=== PATIENT | female | born 1965 | race Caucasian/White ===

== ENCOUNTER → 2023-03-19 10:29 | Outpatient (REF) | payer OTHER, SELFPAY | LOC: RCS 10:29 | PROVIDERS: ATTENDING PHYSICIAN Internal Medicine Cardiovascular Disease; FAMILY PHYSICIAN Family Medicine | DX: R00.1 Bradycardia, unspecified (principal) | CPT/HCPCS: 93225; 93226 ==

== ENCOUNTER → 2023-04-08 12:00 | Outpatient (REF) | payer OTHER, SELFPAY | LOC: DHSLP 12:00 | PROVIDERS: ATTENDING PHYSICIAN Internal Medicine; FAMILY PHYSICIAN Family Medicine | DX: G47.33 Obstructive sleep apnea (adult) (pediatric) (principal); G47.61 Periodic limb movement disorder; G47.00 Insomnia, unspecified; R09.02 Hypoxemia | CPT/HCPCS: 95811 ==

== ENCOUNTER → 2023-04-08 18:38 | Outpatient (REF) | payer OTHER, SELFPAY | LOC: PAVMRI 18:38 | PROVIDERS: ATTENDING PHYSICIAN Internal Medicine Nephrology; FAMILY PHYSICIAN Family Medicine | DX: Q61.2 Polycystic kidney, adult type (principal); I10 Essential (primary) hypertension | CPT/HCPCS: 70544 ==

== ENCOUNTER 2023-04-09 09:23 | Day surgery (SDC) | payer OTHER, SELFPAY ==
[2023-04-01 13:18] VITALS: BMI 25.7
[2023-04-09 10:44] VITALS: BMI 25.1
--- NOTE | 2023-04-09 13:52 | ITS.CL.IMPLP ---
Piano Refinisher - Implant Loop
Implant Loop
Procedure Report:
Date of Procedure: April 09, 2023.
Procedure: Insertable Loop Recorder Implant.
Indication: Presyncope and palpitations. A Holter monitor showed nocturnal heart block of uncertain significance.
Performing physician: Kenny Jules MD, [facility].
Implant: YEOXIN VMall; Assert-IQ EL+, Model# [id number]; Serial# [id number].
Technique: The patient was prepped and draped in the usual fashion. A time-out was performed. No intravenous sedation was administered. Local anesthetic was applied to the left pre-pectoral subcutaneous tissue. Using the insertion kit an incision
was made left of the midline in the fourth intercostal space and the device was implanted subcutaneously and directed towards the nipple. Hemostasis was excellent. The skin was closed with steri-strips. The estimated blood loss was less than 0.5 ml.
There were no complications. No fluoroscopy. R waves measured 0.58 mV and P waves were visible.
Final Programming: Detections: Afib for 10 min, tachy at 165 bpm, mira at 30 bpm, pause at 3 sec.
Conclusion: Uncomplicated insertable loop implant.
Recommendation: Routine post-insertable loop care. The device is MRI conditional without a waiting period and up to 3 Vanessa.
cc: Bernadette Kumar MD and Miriam De La Cruz MD.
== END 2023-04-09 13:40 | disposition home or self-care (01) ==
LOC: CATH 09:23
PROVIDERS: ATTENDING PHYSICIAN Internal Medicine Cardiovascular Disease; FAMILY PHYSICIAN Family Medicine; OTHER PHYSICIAN Internal Medicine Cardiovascular Disease
DX: Z09 Encounter for follow-up examination after completed treatment for conditions other than malignant neoplasm (principal); I44.2 Atrioventricular block, complete; R00.2 Palpitations; R55 Syncope and collapse; I10 Essential (primary) hypertension; E78.00 Pure hypercholesterolemia, unspecified; I34.0 Nonrheumatic mitral (valve) insufficiency; K21.9 Gastro-esophageal reflux disease without esophagitis
CPT/HCPCS: 33285; 93005; C1764

== ENCOUNTER 2023-04-16 06:15 | Day surgery (SDC) | payer OTHER, SELFPAY ==
[2023-04-16] VITALS (11 sets, daily range): BP systolic 104–123; BP diastolic 72–84; BMI 25.1
--- NOTE | 2023-04-16 07:19 | PTCARENOTE ---
Dr Gerard at bedside, stated that pt may leave her contacts in for her EP procedure.
--- NOTE | 2023-04-16 10:41 | ITS.CL.PACE ---
Vacuum Applicator Operator - Pacemaker Implant
Pacemaker Implant
Procedure Report:
Date of Procedure: April 16, 2023.
Procedure: Pacemaker Implantation. Loop Explant.
Indication: The pacemaker is for the treatment of nonreversible symptomatic bradycardia due to paroxysmal third degree atrioventricular block.
Performing physician: Kenny Jules MD, [facility].
Implants:
Pulse Generator: Medtronic; Model# [id number]; Serial# [id number].
RA Lead: Medtronic; Model# 5076-52cm; Serial# [id number].
RV Lead: Medtronic; Model# 3830-69cm; Serial# [id number].
Explant: �[email or web address]; Assert-IQ EL+, Model# [id number]; Serial# [id number].
Technique: A time out was performed. The procedure site was identified. The patient was anesthetized by the anesthesia service. Preoperative cefazolin was administered. The patient was prepped and draped in the usual fashion. Local anesthetic was
applied to the left prepectoral subcutaneous tissue. A 3 inch incision was made along the left deltopectoral groove. Dissection was carried to the fascia. The left cephalic vein was easily isolated and proximal and distal control with 2-0 Vicryl
suture. Using a micropuncture needle to access the cephalic vein under direct visualization a glidewire was advanced into the central circulation. A 7 Fr introducer was placed to allow an 0.35 J wire to be advanced alongside the glidewire. The leads
were introduced with hemostatic peel away introducer sheaths using a retained guidewire technique. The RV lead was placed using utilizing the Medtronic His delivery catheter ([id number]) that was advanced to the left bundle area as confirmed by
fluoroscopy in the HEBREW and DAUGHERTY projections. The lead tip was advanced. PVC morphology was reviewed. When a satisfactory location was identified the lead was screwed into position with serial turns. After each series of turns unipolar sensed
morphology and impedance was, and paced morphology of V1 was analyzed. The lead was further advanced until satisfactory morphology and electrical characteristics were confirmed. The third attempt proved to be a bit more inferior then the initial
two positions. The long guiding sheath was cut and removed from the RV without change in lead position, impedance, sensing, or capture. The lead was secured to the pectoralis fascia with 0-silk suture. The atrial lead was then placed in the right
atrial appendage. 8 volt pacing did not capture the diaphragm from either lead. The atrial lead was secured to the pectoralis muscle and fascia with two 0-silk sutures. A subcutaneous pocket was created with Bovie cautery. Hemostasis was
excellent.The leads were appropriately attached to the device. The pocket was irrigated with antibiotic solution. The device and leads were placed in the pocket. The incision was closed in three layers with absorbable suture. Local anesthetic was
applied to the left prepectoral subcutaneous tissue over the loop site. An incision was made over the scar. Dissection was carried to the capsule. The capsule was entered. The old device was explanted. The pocket appeared normal. Hemostasis was
excellent. The pocket was irrigated saline. The incision was closed with steri-strips. Steri-strips and an Aquacel dressing were placed over the pacemaker incision. Estimated blood loss was 10 ml. There were no complications. Fluoroscopy time: 7.3
minutes and DAP 14.5 GyCM2. No IV contrast was administered. The device was then interrogated after skin closure.
Lead Analysis:
RA lead: P: 1.5 mV; Threshold: 0.5 V @ 0.4 ms; Impedance: 415 ohms.
RV lead: R: 11.1 mV; Threshold: 0.5 V @ 0.4 ms; Impedance: 893 ohms.
Paced QRS characteristics: V1 has QR morphology and measures less than 120 ms in duration, stim to peak V5 is 70 ms, and peak V1 to peak V6 is 46 ms. There is an isoelectric
Final Programming: MVP (AAIR to DDDR) 50-130 bpm. Max AV delay 350 ms.
Conclusion: Uncomplicated dual chamber Medtronic conduction system (LBB area) pacemaker implant with successful LBB capture. The pacing system is MRI conditional. Loop explant.
Recommendation: Routine post pacemaker care.
cc: Bernadette Kuamr MD and Miriam De La Cruz MD.
--- NOTE | 2023-04-16 12:15 | PTCARENOTE ---
Pt had CXR in department, tolerated well.
--- NOTE | 2023-04-16 13:13 | W.PN.UPDATE ---
Update Note
Progress Note Update
57 yo WF s/p DC PPM and Linq explant (same day) She feels good, no cp, sob, site stable with pressure dressing intact, linq site c/d/i with tegaderm. CXR no PTX, leads in good position, EKG SR 1deg AVB. She will get another dose of Ancef prior to
d/c and Keflex x 3 doses. Activity restrictions reviewed. She has inc check in 1 week. She is for d/c home after 2pm.
[2023-04-16] MEDS: ANCEF 5 IV (13:52)
--- NOTE | 2023-04-16 14:21 | PTCARENOTE ---
Pt d/c to home with . Pt given d/c instructions with good verbal feedback.
== END 2023-04-16 14:20 | disposition home or self-care (01) ==
LOC: CATH 06:15
PROVIDERS: ATTENDING PHYSICIAN Internal Medicine Cardiovascular Disease; FAMILY PHYSICIAN Family Medicine; OTHER PHYSICIAN Internal Medicine Cardiovascular Disease
DX: I44.2 Atrioventricular block, complete (principal); Z09 Encounter for follow-up examination after completed treatment for conditions other than malignant neoplasm; I10 Essential (primary) hypertension; E78.00 Pure hypercholesterolemia, unspecified; K21.9 Gastro-esophageal reflux disease without esophagitis; M06.9 Rheumatoid arthritis, unspecified; I71.40 Abdominal aortic aneurysm, without rupture, unspecified
CPT/HCPCS: 33208; 33286; 71045; 93005; C1769; C1785; C1887; C1892; C1898

== ENCOUNTER → 2023-06-28 13:37 | Outpatient (REF) | payer OTHER, SELFPAY | LOC: MRI 13:37 | PROVIDERS: ATTENDING PHYSICIAN Psychiatry & Neurology Neurology; FAMILY PHYSICIAN Family Medicine | DX: M47.816 Spondylosis without myelopathy or radiculopathy, lumbar region (principal); M70.61 Trochanteric bursitis, right hip; M47.817 Spondylosis without myelopathy or radiculopathy, lumbosacral region | CPT/HCPCS: 72148 ==

== ENCOUNTER → 2023-07-08 06:27 | Day surgery (SDC) | payer OTHER, SELFPAY | LOC: GI 06:27 | PROVIDERS: ATTENDING PHYSICIAN Internal Medicine Gastroenterology; FAMILY PHYSICIAN Family Medicine | DX: R19.4 Change in bowel habit (principal); K64.8 Other hemorrhoids; K63.5 Polyp of colon | CPT/HCPCS: 45380; 88305 ==

== ENCOUNTER → 2023-12-31 13:17 | Outpatient (REF) | payer OTHER, SELFPAY | LOC: RAD 13:17 | PROVIDERS: ATTENDING PHYSICIAN Nurse Practitioner Family; FAMILY PHYSICIAN Family Medicine | DX: J98.6 Disorders of diaphragm (principal) | CPT/HCPCS: 71046; 76000 ==

== ENCOUNTER → 2024-01-07 16:16 | Outpatient (REF) | payer OTHER, SELFPAY | LOC: RAD 16:16 | PROVIDERS: ATTENDING PHYSICIAN Internal Medicine Cardiovascular Disease; FAMILY PHYSICIAN Family Medicine | DX: I71.21 Aneurysm of the ascending aorta, without rupture (principal); I10 Essential (primary) hypertension | CPT/HCPCS: 71250 ==

== ENCOUNTER 2024-02-14 06:21 | Day surgery (SDC) | payer OTHER, SELFPAY | END 2024-02-14 10:32 | disposition home or self-care (01) | LOC: GI 06:21 | PROVIDERS: ATTENDING PHYSICIAN Internal Medicine Gastroenterology | DX: R12 Heartburn (principal); K31.89 Other diseases of stomach and duodenum; K22.89 Other specified disease of esophagus; R19.7 Diarrhea, unspecified; K29.50 Unspecified chronic gastritis without bleeding; K20.90 Esophagitis, unspecified without bleeding | CPT/HCPCS: 43239; 88305; 88342 ==

== ENCOUNTER → 2024-03-29 16:41 | Outpatient (REF) | payer OTHER, SELFPAY | LOC: WDC 16:41 | PROVIDERS: ATTENDING PHYSICIAN Nurse Practitioner Family | DX: Z12.31 Encounter for screening mammogram for malignant neoplasm of breast (principal) | CPT/HCPCS: 77063; 77067 ==

== ENCOUNTER 2024-04-30 12:01 | Emergency (ER) | payer OTHER, SELFPAY ==
[2024-04-30 12:11] VITALS: BP 141/87
--- NOTE | 2024-04-30 13:11 | ED.GENMED ---
History of Present Illness
<Mayo Farmer Jr., PA-C - Last Filed: 04/30/24 13:21>
General
Chief Complaint: Head Injury
Source: patient and spouse
Exam Limitations: none
Time Seen by Provider: 04/30/24 12:47
Nursing documentation reviewed up to this point in time: agreed with
History of Present Illness
History of Present Illness:
58-year-old female presenting to the emergency department today with concerns of a ground-level fall hitting the back of her head. Did not lose consciousness did notice some clear liquid coming out of her nose which is since resolved no recurrence
over the past hour. She claims the symptoms are now very minimal. Does have some sensation of fogginess but denies any numbness weakness nausea vomiting.
Past History
<Mayo Farmer Jr., PA-C - Last Filed: 04/30/24 13:21>
Past History
ED Past Medical History: Other (Polycystic kidneys) and Other (Kidney stone)
ED Past Surgical History: None
Social History
Tobacco: Non-smoker
Living: with family
Family History
Family History: Other (Polycystic kidney disease); Negative Diabetes, Hypertension, Early CAD, Asthma or Cancer
Review of Systems
<Mayo Farmer Jr., PA-C - Last Filed: 04/30/24 13:21>
Review of Systems
Allergies reviewed?: Yes
All Other Systems: ROS reviewed and negative except as documented in HPI and ROS
Phy Exam
<DEBRA Torres Jr. Last Filed: 04/30/24 13:21>
Physical Exam
Physical Exam:
GENERAL: Alert , in no apparent distress
EYE: pupils equal and reactive
NECK: Supple, no significant adenopathy.
ENT: o/p clr, mmm.
CARDIAC: Regular rate and rhythm .
LUNGS: Clear breath sounds bilaterally, no acute respiratory distress, no wheezes/rales/rhonchi
ABDOMEN: Soft, without focal tenderness, no r/g, no cvat
NEUROLOGICAL: Alert and oriented, no focal neuro deficits 5 out of 5 upper and lower extremity strength normal sensation with palpating bilaterally.
SKIN: Warm and dry, skin intact.
MUSCULOSKELETAL: No edema, well perfused.
PSYCH: Normal and appropriate interaction.
Course
<Mayo Farmer Jr., PA-C - Last Filed: 04/30/24 13:21>
Orders/Labs/Results
Orders:
Orders
04/30/24 12:14
CT Head W/o Iv Contrast Urgent
Comment:
Reason For Exam: fall with head strike, pupils different in size
Vital Signs
Initial and Last Documented VS:
Initial Vital Signs
Temp Pulse Resp BP Pulse Ox
98.7 F 81 17 141/87 99
04/30/24 12:11 04/30/24 12:11 04/30/24 12:11 04/30/24 12:11 04/30/24 12:11
Last Documented Vital Signs
Temp Pulse Resp BP Pulse Ox
98.7 F 81 17 141/87 99
04/30/24 12:11 04/30/24 12:11 04/30/24 12:11 04/30/24 12:11 04/30/24 12:11
<Gus Vivas DO - Last Filed: 04/30/24 15:01>
Orders/Labs/Results
Orders:
Orders
04/30/24 12:14
CT Head W/o Iv Contrast Urgent
Comment:
Reason For Exam: fall with head strike, pupils different in size
Vital Signs
Initial and Last Documented VS:
Initial Vital Signs
Temp Pulse Resp BP Pulse Ox
98.7 F 81 17 141/87 99
04/30/24 12:11 04/30/24 12:11 04/30/24 12:11 04/30/24 12:11 04/30/24 12:11
Last Documented Vital Signs
Temp Pulse Resp BP Pulse Ox
98.7 F 81 17 141/87 99
04/30/24 12:11 04/30/24 12:11 04/30/24 12:11 04/30/24 12:11 04/30/24 12:11
<Mayo Farmer Jr., PA-C - Last Filed: 04/30/24 13:21>
MDM/Problems Addressed
MDM/Problems Addressed:
58-year-old female presenting to the emergency department today with concerns of hitting the back of her head prior to arrival did not lose consciousness not on blood thinners. There is some clear liquid from her nose but denies any additional
ongoing symptoms other than some mild vague headache nausea. Here neurologically patient appears very well no evidence of any ongoing injury no evidence of injury to the back of the head CT scan did not show any emergent findings did show an
arachnoid cyst that has not changed for decades. Unclear the cause of clear liquid but no evidence of significant traumatic injury no evidence of facial fracture. Liquid drainage seems unlikely to be related to CSF no ongoing fluid drainage unable
to be tested, could be sinus fluid. This was discussed with the patient. She was advised that if symptoms worsen or progress she should return.
<Mayo Farmer Jr., PA-C - Last Filed: 04/30/24 13:21>
*Critical Care Note
Total Time (30-74mins, 75-104mins- exclusive of procedures): Not Applicable
ED Attending Note
<Mayo Farmer Jr., PA-C - Last Filed: 04/30/24 13:21>
-
Portions of this chart may have been created with voice recognition software.� Occasional wrong word or��sound alike� substitutions may have occurred due to the inherent limitations of voice recognition software.
<Gus Vivas DO - Last Filed: 04/30/24 15:01>
ED Attending Note
I performed the substantive portion of visit, reviewed & personally made and approve the management plan that is documented in note by myself or SERGEI.: Yes
ED Attending Note:
58-year-old female presents after minor head injury. Case reviewed with ELIAN. No signs of skull fracture and CT negative. Unlikely etiology of drainage to be CSF as it has resolved and no gross findings to suggest basilar skull fracture. Monitor
at home
Discharge Plan
Departure
Patient Disposition: Home (Routine Discharge)
Date of Disposition: 04/30/24
Time of Disposition: 13:20
Patient with high blood pressure during this ER visit?: No
Condition: Good
Covid-19: Not Applicable
Discharge Problem:
Mild closed head injury
Instructions: Concussion, Adult (DC), Minor Head Injury (DC)
Prescriptions:
No Action
atorvastatin [Lipitor] 40 MG tablet
40 mg PO QPM
pantoprazole 40 MG tablet,delayed release (DR/EC)
40 mg PO DAILY
losartan 25 MG tablet
25 mg PO DAILY
sertraline 50 MG tablet
50 mg PO QPM
amlodipine [Norvasc] 5 MG tablet
10 mg PO QPM
therapeutic multivitamin Tablet
1 tab PO DAILY
omega 5-vio-ffm-fish oil [Fish Oil] 1,000 mg (120 mg-180 mg) Capsule
1 cap PO DAILY
Jynarque 90 mg (AM)/ 30 mg (PM) Tablets, Sequential
1 ea PO PER PKG DIR
losartan 50 mg Tablet
50 mg PO QPM
sulfasalazine 500 mg Tablet
500 mg PO DAILY
sulfasalazine 500 mg Tablet
1,000 mg PO QPM
acetaminophen 500 mg Tablet
500 - 1,000 mg PO Q6H PRN (Reason: pain)
Probiotic
1 tab PO DAILY
cephalexin 500 mg tablet
500 mg PO Q8H Qty: 3 0RF
Referrals:
Miriam De La Cruz MD [Family Provider] -
Activity Restrictions/Additional Instructions:
You came to the emergency department today with concerns after a fall. Here you had a normal head CT and reassuring neurologic evaluation. Please rest over the next few days as symptoms should hopefully be improving. If you have progressive
symptoms progressive headache positional headache or worsening liquid drainage from your nose please immediately return to the ER for reassessment.
Interventions
Interventions:
*Risk Screen - Suicide Last Done: 04/30/24 12:14
*General Assessment Last Done: 04/30/24 12:14
*Neglect/Abuse Screening Last Done: 04/30/24 12:14
*ED COVID-19 Vaccine History Last Done: 04/30/24 12:14
*Nursing Disposition Last Done: 04/30/24 14:08
ED- Neurological Assessment Last Done: 04/30/24 12:57
ED-Skin Assessment Last Done: 04/30/24 12:57
Discharge Date and Time
Discharge Date/Time: 04/30/24 14:14
Print Language: YI
== END 2024-04-30 14:14 | disposition home or self-care (01) ==
LOC: EMR 12:01
PROVIDERS: EMERGENCY PHYSICIAN Emergency Medicine; FAMILY PHYSICIAN Family Medicine
DX: S09.90XA Unspecified injury of head, initial encounter (principal); W18.30XA Fall on same level, unspecified, initial encounter
CPT/HCPCS: 99284; 70450

== ENCOUNTER 2024-05-04 06:16 | Day surgery (SDC) | payer OTHER, SELFPAY ==
[2024-05-04] VITALS (11 sets, daily range): BP systolic 115–128; BP diastolic 72–84; BMI 25.1
[2024-05-04] MEDS: NORMOSOL-R/PLASMALYTE-A 1000 IV (06:49)
[2024-05-04] MEDS: DILAUDID 0.25 MG IV (11:33)
== END 2024-05-04 12:50 | disposition home or self-care (01) ==
LOC: SDS 06:16
PROVIDERS: ATTENDING PHYSICIAN Otolaryngology
DX: G47.33 Obstructive sleep apnea (adult) (pediatric) (principal); Z68.25 Body mass index [BMI] 25.0-25.9, adult
CPT/HCPCS: 64582; 42975; 70360; 71045; C1767; C1778; C1787

== ENCOUNTER → 2024-08-15 13:58 | Outpatient (REF) | payer OTHER, SELFPAY | LOC: RAD 13:58 | PROVIDERS: ATTENDING PHYSICIAN Family Medicine; FAMILY PHYSICIAN Family Medicine | DX: M79.605 Pain in left leg (principal); M79.89 Other specified soft tissue disorders | CPT/HCPCS: 93922; 93925 ==

== ENCOUNTER → 2024-12-08 11:16 | Outpatient (REF) | payer OTHER, SELFPAY | LOC: DHSLP 11:16 | PROVIDERS: ATTENDING PHYSICIAN Internal Medicine; FAMILY PHYSICIAN Family Medicine | DX: G47.61 Periodic limb movement disorder (principal); G47.00 Insomnia, unspecified; R06.83 Snoring | CPT/HCPCS: 95810 ==

== ENCOUNTER → 2024-12-25 10:50 | Outpatient (REF) | payer OTHER, SELFPAY | LOC: RAD 10:50 | PROVIDERS: ATTENDING PHYSICIAN Nurse Practitioner Adult Health | DX: G47.33 Obstructive sleep apnea (adult) (pediatric) (principal); R06.02 Shortness of breath | CPT/HCPCS: 71046 ==

== ENCOUNTER 2025-01-10 13:27 | Outpatient (RCR) | payer OTHER, SELFPAY | END 2025-01-10 23:59 | disposition home or self-care (01) | LOC: RPT 13:27 | PROVIDERS: ATTENDING PHYSICIAN Orthopaedic Surgery; FAMILY PHYSICIAN Family Medicine | DX: S83.511D Sprain of anterior cruciate ligament of right knee, subsequent encounter (principal); X58.XXXD Exposure to other specified factors, subsequent encounter; R26.89 Other abnormalities of gait and mobility; Z73.6 Limitation of activities due to disability; W19.XXXD Unspecified fall, subsequent encounter | CPT/HCPCS: 97010; 97110; 97162; 97530 ==

== ENCOUNTER 2025-01-15 08:17 | Outpatient (RCR) | payer OTHER, SELFPAY | END 2025-01-22 23:59 | disposition home or self-care (01) | LOC: RPT 08:17 | PROVIDERS: ATTENDING PHYSICIAN Orthopaedic Surgery; FAMILY PHYSICIAN Family Medicine | DX: S83.511D Sprain of anterior cruciate ligament of right knee, subsequent encounter (principal); Z73.6 Limitation of activities due to disability; R26.89 Other abnormalities of gait and mobility; W19.XXXD Unspecified fall, subsequent encounter | CPT/HCPCS: 97110 ==

== ENCOUNTER → 2025-02-02 13:33 | Outpatient (REF) | payer OTHER, SELFPAY | LOC: MRI 13:33 | PROVIDERS: ATTENDING PHYSICIAN Orthopaedic Surgery; FAMILY PHYSICIAN Family Medicine; REFERRING PHYSICIAN Psychiatry & Neurology Neurology | DX: M25.561 Pain in right knee (principal) | CPT/HCPCS: 73721 ==

== ENCOUNTER → 2025-02-06 11:10 | Outpatient (REF) | payer OTHER, SELFPAY | LOC: RAD 11:10 | PROVIDERS: ATTENDING PHYSICIAN Internal Medicine Rheumatology; FAMILY PHYSICIAN Family Medicine | DX: M81.0 Age-related osteoporosis without current pathological fracture (principal); Z13.820 Encounter for screening for osteoporosis | CPT/HCPCS: 77080 ==